=== PATIENT | male | born 1990 | race Two or more races ===

== ENCOUNTER → 2020-02-18 | Outpatient (CLI) | payer BC ==
--- NOTE | 2020-02-18 15:33 | RAD ---
Three-view left shoulder study Clinical indications: Left shoulder pain. FINDINGS: Surgical plate is seen along the left clavicle consistent with ORIF of an old fracture. No acute-appearing fracture is seen. Glenohumeral joint is normally aligned. No AC joint separation is seen. No lytic process is evident. IMPRESSION: No acute osseous abnormality. Old left clavicular fracture. Electronically signed by: Michael Lopez MD (02/18/2020 3:30 PM) [id number]
== END ==
LOC: DXRAD 14:25
PROVIDERS: ATTEND Physician Assistant
DX: M25.512 Pain in left shoulder (principal)
CPT/HCPCS: 73030